=== PATIENT | female | born 2000 | race Caucasian/White ===

== ENCOUNTER 2023-01-19 10:11 | Emergency (ER) | payer BC, OTHER ==
[2023-01-19] MEDS ORDERED: Ondansetron PF 4 MG/2 ML Vial ONE (11:01)
[2023-01-19 11:33] LABS: #Eosinphils 0.1 10x3/uL (0.0-0.5); #Monocytes 0.6 10x3/uL (0.0-1.1); #Neutrophils 6.6 10x3/uL (1.5-8.4); %Basophils 0.3 % (0.0-2.0); %Eosinophils 0.5 % (0.0-6.0); %Lymphocytes 23.9 % (18.0-47.0); %Monocytes 6.2 % (0.0-10.0); %Neutrophils 68.4 % (40.0-75.0); Hemoglobin 15.2 g/dL (12.0-15.5); Mean Corpuscular HGB CONC 34.2 g/dL (32.0-36.0); Mean Corpuscular Hemoglobin 29.3 pg (27.0-33.0); Mean Corpuscular Volume 85.5 fl (81.6-98.3); Mean Platelet Volume 9.1 fl (7.4-10.4); Platelet Count 325 10x3/uL (150-450); RBC Distribution Width 12.4 % (11.5-14.5); Red Blood Cell (RBC) Count 5.19 10x6/uL (3.90-5.03); White Blood Cell (WBC) Count 9.7 10x3/uL (3.5-10.5)
[2023-01-19 11:45] LABS: ALT (SGPT) 48 U/L (8-55); AST (SGOT) 25 U/L (5-34); Albumin 4.8 g/dL (3.5-5.0); Alkaline Phosphatase 50 U/L (40-100); Anion Gap 14 mmol/L (10-20); BUN (Urea Nitrogen) 10 mg/dL (7.0-18.7); Bilirubin, Total 0.8 mg/dL (0.2-1.2); Calc. Creatinine Clearance 0 mL/min (70-130); Calcium 9.5 mg/dL (7.8-10.44); Carbon Dioxide 20 mmol/L (22-29); Chloride 105 mmol/L (98-107); Estimated GFR 127; Globulin 2.8 g/dL (2.4-3.5); Glucose 88 mg/dL (70-105); Potassium 3.8 mmol/L (3.5-5.1); Protein, Total 7.6 g/dL (6.0-8.3); Sodium 135 mmol/L (136-145)
[2023-01-19 11:59] LABS: Bilirubin Neg (Negative); Blood, Urine Negative (Negative); Clarity Clear (Clear); Glucose, Urine (Dipstick) Normal (Negative); Ketone, Urine 15 mg/dL (Negative); Leukocyte Negative (Negative); Nitrite Negative (Negative); Protein, Urine (Dipstick) 15 mg/dl (Neg-Trace); Urobilinogen Normal mg/dL (Less than 2)
== END 2023-01-19 12:44 | disposition home or self-care (01) ==
LOC: CSHERS 10:11
DX: O21.1 Hyperemesis gravidarum with metabolic disturbance (principal); Z3A.01 Less than 8 weeks gestation of pregnancy
CPT/HCPCS: 76856; 80053; 81003; 84702; 85025; 96361; 96374; J2405

== ENCOUNTER 2023-08-03 10:25 | Inpatient (IN) | payer BC, OTHER ==
[2023-08-21] MEDS ORDERED: Bupivacaine 0.25% HCL 30 ML VIAL ONE (07:00)
[2023-08-21 16:07] VITALS: BMI 41.3
[2023-08-21] MEDS ORDERED: Tranexamic Acid 1,000 MG/10 ML VIAL IVP PRN (17:40)
[2023-08-21] MEDS ORDERED: fentaNYL 50 mcg/mL 1 mL Vial SLOW IVP PRN (17:40)
[2023-08-21] MEDS ORDERED: HYDROcodone/Acetaminophen 5/325 mg Tablet PO PRN (17:40)
[2023-08-21] MEDS ORDERED: Ibuprofen 800 MG TAB PO PRN (17:40)
[2023-08-21] MEDS ORDERED: hydrALAZINE 20 MG/ML VIAL SLOW IVP PRN (17:40)
[2023-08-21] MEDS ORDERED: Diphenoxylate HCl/Atropine Tablet PO PRN (17:40)
[2023-08-21] MEDS ORDERED: Misoprostol 200 MCG TAB PR PRN (17:40)
[2023-08-21] MEDS ORDERED: Lidocaine 1% (PF) 30 ML VIAL SC PRN (17:40)
[2023-08-21] MEDS ORDERED: Carboprost 250 MCG/ML AMP IM PRN (17:40)
[2023-08-21] MEDS ORDERED: Methylergonovine 0.2 MG/ML VIAL IM PRN (17:40)
[2023-08-21] MEDS ORDERED: Acetaminophen 500 MG TAB PO PRN (17:40)
[2023-08-21] MEDS ORDERED: Ondansetron PF 4 MG/2 ML Vial IVP PRN ×2 (17:40→21:00)
[2023-08-21] MEDS ORDERED: Promethazine HCl 25 MG/ML VIAL IM PRN ×2 (17:40→21:00)
[2023-08-21] MEDS ORDERED: Oxytocin 30 units/NS 500 ML 500 ML IV SCH ×3 (17:45)
[2023-08-21] MEDS ORDERED: Lactated Ringer's 1,000 ML IV SCH (17:45)
[2023-08-21 18:01] LABS: Hematocrit 35.5 % (34.9-44.5); Hemoglobin 12.4 g/dL (12.0-15.5); Mean Corpuscular HGB CONC 34.9 g/dL (32.0-36.0); Mean Corpuscular Hemoglobin 30.3 pg (27.0-33.0); Mean Corpuscular Volume 86.8 fl (81.6-98.3); Mean Platelet Volume 9.4 fl (7.4-10.4); Platelet Count 279 10x3/uL (150-450); RBC Distribution Width 13.8 % (11.5-14.5); Red Blood Cell (RBC) Count 4.09 10x6/uL (3.90-5.03); White Blood Cell (WBC) Count 10.4 10x3/uL (3.5-10.5)
[2023-08-21 18:26] LABS: HBSAg Index 0.13 S/CO (0-0.99); Hep B Surf Ag - L&D Non-Reactive S/CO (NonReactive)
[2023-08-21 18:27] LABS: Syphilis Antibody Nonreactive (Nonreactive); Syphilis Antibody Index 0.04 S/CO (<1.00 Non-Reactive)
[2023-08-21] MEDS ORDERED: fentaNYL/Ropivacaine Epidural 100 ML ONE (20:15)
[2023-08-21] MEDS ORDERED: Naloxone HCl 0.4 mg/ml Vial IVP PRN ×2 (21:00)
[2023-08-21] MEDS ORDERED: ePHEDrine Sulfate 50 MG/10 ML VIAL SLOW IVP PRN (21:00)
[2023-08-21] MEDS ORDERED: Lactated Ringer's 500 ML IV PRN (21:00)
[2023-08-21] MEDS ORDERED: diphenhydrAMINE 50 MG/ML VIAL IVP PRN (21:00)
[2023-08-21] MEDS ORDERED: Acetaminophen 325 MG TAB PO PRN (21:00)
[2023-08-21] MEDS ORDERED: Communication Order-Pharmacy FS SCH (21:00)
[2023-08-21] MEDS ORDERED: Moisturizing Cream (Eucerin) 113 GM JAR TOP PRN (21:00)
[2023-08-21] MEDS ORDERED: fentaNYL 2 mcg/Ropivacaine 0.2% Epidural 100 ML CADD EPIDURAL SCH (21:00)
[2023-08-22] MEDS ORDERED: Ondansetron PF 4 MG/2 ML Vial IVP PRN (00:11)
[2023-08-22] MEDS ORDERED: Bisacodyl 10 MG SUPP PR PRN (00:11)
[2023-08-22] MEDS ORDERED: diphenhydrAMINE 25 MG CAP PO PRN (00:11)
[2023-08-22] MEDS ORDERED: hydrALAZINE 20 MG/ML VIAL SLOW IVP PRN (00:11)
[2023-08-22] MEDS ORDERED: Milk Of Magnesia 30 ML UDCUP PO PRN (00:11)
[2023-08-22] MEDS ORDERED: Lanolin Ointment 7 GM TUBE TOP PRN (00:11)
[2023-08-22] MEDS ORDERED: Boostrix 0.5 ML (Tdap) VIAL (>/=7 yrs of age) IM ONE (00:11)
[2023-08-22] MEDS: HYDROcodone/Acetaminophen 5/325 mg Tablet PO PRN (01:47)
[2023-08-22] MEDS: Ibuprofen 800 MG TAB PO SCH ×3 (05:33→21:45)
[2023-08-22] MEDS: Ferrous Sulfate 325 MG TAB PO SCH ×2 (07:23→16:34)
[2023-08-22] MEDS: Prenatal Vitamin 1 TAB PO SCH (07:55)
[2023-08-22] MEDS: Docusate 100 MG CAP PO SCH ×2 (07:55→21:45)
[2023-08-23] MEDS: Ibuprofen 800 MG TAB PO SCH (05:14)
[2023-08-23 08:04] VITALS: BP 120/69; TEMP 97.8
[2023-08-23] MEDS: Docusate 100 MG CAP PO SCH (09:17)
[2023-08-23] MEDS: Prenatal Vitamin 1 TAB PO SCH (09:17)
[2023-08-23] MEDS: Ferrous Sulfate 325 MG TAB PO SCH (09:59)
[2023-08-23] MEDS: HYDROcodone/Acetaminophen 5/325 mg Tablet PO PRN (11:51)
== END 2023-08-23 14:00 | disposition home or self-care (01) | DRG 807 ==
LOC: CSHLD 08-21 15:34 → CSHPP 08-22 00:30
PROVIDERS: ADMIT Family Medicine; ATTEND Family Medicine
PROC: 10E0XZZ Delivery of Products of Conception, External Approach (ICD-10-PCS; principal; 2023-08-21)
PROC: 10907ZC Drainage of Amniotic Fluid, Therapeutic from Products of Conception, Via Natural or Artificial Opening (ICD-10-PCS; 2023-08-21)
DX: O69.81X0 Labor and delivery complicated by cord around neck, without compression, not applicable or unspecified (principal); Z37.0 Single live birth; Z3A.38 38 weeks gestation of pregnancy
CPT/HCPCS: 85027; 86780; 86850; 86900; 86901; 87340; J2405; J2590; S0020